=== PATIENT | male | born 1990 | race African-American/Black ===

== ENCOUNTER 2017-06-01 20:45 | Emergency (ER) | payer OTHER ==
[~2017-06-01] VITALS: Ht 167.6 cm; Wt 61.2 kg
[2017-06-01] MEDS ORDERED: ULTRAM 50MG TAB50 MG PO (23:16)
[2017-06-01 23:40] VITALS: BP 100/70
== END 2017-06-01 23:39 | disposition home or self-care (01) ==
LOC: ER 20:45
DX: M79.662 Pain in left lower leg (principal); F17.210 Nicotine dependence, cigarettes, uncomplicated; F10.99 Alcohol use, unspecified with unspecified alcohol-induced disorder